=== PATIENT | female | born 1980 | race Caucasian/White ===

== ENCOUNTER 2017-02-14 04:00 | Emergency (ER) | payer SELFPAY ==
[~2017-02-14] VITALS: Ht 167.6 cm; Wt 66.2 kg
[2017-02-14 04:23] LABS: URINE BILIRUBIN - DIPSTICK NEGATIVE (NEG); URINE BLOOD TRACE-LYSED (NEG)
[2017-02-14 04:24] LABS: HEMOGLOBIN 13.4 g/dL (12.2-16.2); LYMPH % 38.7 % (10-50.0)
[2017-02-14 04:51] LABS: BUN 14 mg/dL (7-18)
[2017-02-14 04:55] LABS: GFR (ESTIMATED) 82 ML/MIN (59-)
--- NOTE | 2017-02-14 05:03 | Emergency Room Report ---
History of Present Illness Time Seen by [id number] Presenting Problem in Triage Pt arrived:Walked Presenting Problem:C/O CHEST PAIN AFTER HAVING ASTHMA ATTACK AT 299. 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 N Clinical Suspician of Infection? N Mental Status: 1 - Regular (Normal Baseline) Sepsis Risk:Low Sepsis Risk Have you (or family members/close friends) recently traveled outside the [place]? N If Yes, where/when: Have you had exposure to infectious disease within the past month? N TB? Other? Specify: Source patient, RN notes reviewed, old records Exam Limitations no limitations Comment after asthma attsack pt with acute chest pain tonight Cardiac Chest Pain Chest pain indicative of cardiac No Timing/Duration this evening Severity moderate ALLERGIES Coded Allergies: Penicillins (Mild, 12/26/16) nalbuphine (Mild, 12/26/16) tramadol (Mild, 12/26/16) Home Medications Reported Medications Albuterol (Albuterol-Hfa Inhaler) 1 PUFF IH PRN PRN SOB History Medical History General CAD? No Angina: Yes MD: No Hypertension? No Hyperlipidemia? No CHF? No DVT? Yes PE? No COPD? No Asthma? Yes Anemia? No GERD? No Gastric ulcers? No GI Bleed? No Hernia? No Thyroid Problems? No Hypothyroidism? No CVA? No Seizures? No Diabetes? No Renal Insuffiency? No End Stage Renal Disease? No UTI? No Stones? No BPH? No GB Disease: No Nephritic Syndrome? No Asplenia? No Hepatitis? No Sickle Cell Disease? No Arthritis? No Migraines? Yes Cataracts? No Glaucoma? No MRSA? No HIV? No TB? No Anxiety? Yes Depression? No Cancer? No More? 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 Respiratory cough, shortness of breath, wheezing Cardiovascular chest pain, denies palpitations, denies syncope Gastrointestinal denies abdominal pain, denies diarrhea, denies vomiting Genitourinary denies: dysuria, frequency, hesitancy, hematuria. Musculoskeletal denies back pain, denies joint swelling, denies neck pain Skin denies rash Psychiatric/Neurological denies headache, denies seizure Physical Exam Vital Signs Vital Signs Date Time Temp Pulse Resp B/P Pulse O2 O2 Flow FiO2 Ox Delivery Rate 02/14 402 97.5 83 24 146/92 100 - WBC >12,000 or <4,000 or 10% bands? 2 or more SIRS Criteria Met? B/P:146/92 MAP:110 Creatinine >2.0? UA output<0.5ml/kg/hr for 2 hrs? Platelet count >100,000? Lactate >2.0mmol/1? INR >1.2 or PTT > than 60 sec? Evidence of Organ Dysfunction? Provider documented clinical suspician of infection? N Sepsis Criteria Count: 1 Sepsis Risk: Low Sepsis Risk General Appearance no apparent distress Eye Exam - bilateral eye PERRL, bilateral eye EOMI Ear, Nose, Throat normal ENT inspection Neck supple Respiratory Status No: respiratory distress. Lung Sounds bilateral: rhonchi. 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 No Results/Orders Laboratory Tests 02/14/175: Urine Color YELLOW, Urine Appearance CLEAR, Urine pH 7.0, Ur Specific [place] <= 1.005, Urine Protein NEGATIVE, Urine Ketones NEGATIVE, Urine Blood TRACE-LYSED, Urine Nitrate NEGATIVE, Urine Bilirubin NEGATIVE, Urine Urobilinogen 0.2, Ur Leukocyte Esterase NEGATIVE, Urine RBC OCC, Ur Squamous Epith Cells 5-10, Urine Glucose NEGATIVE 02/14/175: Sodium 140, Potassium 3.7, Chloride 105, Carbon Dioxide 25, BUN 14, Creatinine 0.8, Estimated Creat Clear 104, Estimated GFR (MDRD) 82, Glucose 94, Calcium 9.3 , Total Bilirubin 0.5, AST 9 L, ALT 18, Alkaline Phosphatase 52, Creatine Kinase 58, CK-MB (CK-2) Rel Index 0.9, CK and CKMB Interp < 0.5, Troponin I < 0.02, Total Protein 7.3, Albumin 4.2, Globulin 3.1, Albumin/Globulin Ratio 1.4, WBC 7.7, RBC 4.62, Hgb 13.4, Hct 39.8, MCV 86.1, RDW 12.9, Plt Count 334, MPV 7.3 L, Gran % 52.2, Gran # 4.0, Lymphocytes % 38.7, Monocytes % 6.3, Eosinophils % 2.4, Basophils % 0.5, Lymphocytes # 3.0, Monocytes # 0.5, Eosinophils # 0.2, Basophils # 0.0, PUBS MCHC 33.7, MCH 29.0 Current Medication Orders Sig/Justa Start time Last Medication Dose Route Stop Time Status Admin Albuterol/Ipratropium 3 ML ONCE ONE 02/14 0430 DC 02/14 INH 02/14 043 0437 Albuterol/Ipratropium 0 .STK-MED ONE 02/14 0426 DC INH Orders Procedure Date/time Status RT REQUEST DUONEB 02/14 0418 Active URINALYSIS/COMPLETE 02/14 0407 Complete URINE 02/14 0407 Complete ELECTROCARDIOGRAM REQUEST 02/14 0405 Active CHEST(2 VIEWS-NOT PORTABLE) 02/14 0405 Active IV SALINE LOCK 02/14 0405 Active CBC WITH AUTO DIFF 02/14 0405 Complete CARDIAC ENZYMES 02/14 0405 Complete CHEM 12 PROFILE 02/14 0405 Complete [facility] 02/14 UNK Active 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 of ischemic chgs XRAY/CT/US XRAY/CT/US XRAY chest XR interpretation by reviewed by me Xray Results normal/NAD Departure Departure Time of Disposition 0503 Disposition DC Home or Self Care(routine) Clinical Impression Primary Impression: Chest pain Qualifiers: Chest pain type: unspecified Qualified Code: R07.9 - Chest pain, unspecified Secondary Impressions: Asthma Qualifiers: Asthma severity: unspecified severity Asthma complication type: with acute exacerbation Qualified Code: J45.901 - Unspecified asthma with (acute ) exacerbation Condition STABLE Referrals Josue JANE,A.C. (Family) Patient Instructions DI for Atypical Chest Pain Additional Instructions call pcp for follow up Discharge Counseling Counseled pt/family regarding diagnosis, test results, follow up needs ED Critical Care Critical Care No at [id number]
--- NOTE | 2017-02-14 05:03 | Emergency Room Report ---
History of Present Illness Time Seen by [id number] Presenting Problem in Triage Pt arrived:Walked Presenting Problem:C/O CHEST PAIN AFTER HAVING ASTHMA ATTACK AT 299. 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 N Clinical Suspician of Infection? N Mental Status: 1 - Regular (Normal Baseline) Sepsis Risk:Low Sepsis Risk Have you (or family members/close friends) recently traveled outside the [place]? N If Yes, where/when: Have you had exposure to infectious disease within the past month? N TB? Other? Specify: Source patient, RN notes reviewed, old records Exam Limitations no limitations Comment after asthma attsack pt with acute chest pain tonight Cardiac Chest Pain Chest pain indicative of cardiac No Timing/Duration this evening Severity moderate ALLERGIES Coded Allergies: Penicillins (Mild, 12/26/16) nalbuphine (Mild, 12/26/16) tramadol (Mild, 12/26/16) Home Medications Reported Medications Albuterol (Albuterol-Hfa Inhaler) 1 PUFF IH PRN PRN SOB History Medical History General CAD? No Angina: Yes SD: No Hypertension? No Hyperlipidemia? No CHF? No DVT? Yes PE? No COPD? No Asthma? Yes Anemia? No GERD? No Gastric ulcers? No GI Bleed? No Hernia? No Thyroid Problems? No Hypothyroidism? No CVA? No Seizures? No Diabetes? No Renal Insuffiency? No End Stage Renal Disease? No UTI? No Stones? No BPH? No GB Disease: No Nephritic Syndrome? No Asplenia? No Hepatitis? No Sickle Cell Disease? No Arthritis? No Migraines? Yes Cataracts? No Glaucoma? No MRSA? No HIV? No TB? No Anxiety? Yes Depression? No Cancer? No More? 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 Respiratory cough, shortness of breath, wheezing Cardiovascular chest pain, denies palpitations, denies syncope Gastrointestinal denies abdominal pain, denies diarrhea, denies vomiting Genitourinary denies: dysuria, frequency, hesitancy, hematuria. Musculoskeletal denies back pain, denies joint swelling, denies neck pain Skin denies rash Psychiatric/Neurological denies headache, denies seizure Physical Exam Vital Signs Vital Signs Date Time Temp Pulse Resp B/P Pulse O2 O2 Flow FiO2 Ox Delivery Rate 02/14 402 97.5 83 24 146/92 100 - WBC >12,000 or <4,000 or 10% bands? 2 or more SIRS Criteria Met? B/P:146/92 MAP:110 Creatinine >2.0? UA output<0.5ml/kg/hr for 2 hrs? Platelet count >100,000? Lactate >2.0mmol/1? INR >1.2 or PTT > than 60 sec? Evidence of Organ Dysfunction? Provider documented clinical suspician of infection? N Sepsis Criteria Count: 1 Sepsis Risk: Low Sepsis Risk General Appearance no apparent distress Eye Exam - bilateral eye PERRL, bilateral eye EOMI Ear, Nose, Throat normal ENT inspection Neck supple Respiratory Status No: respiratory distress. Lung Sounds bilateral: rhonchi. 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 No Results/Orders Laboratory Tests 02/14/175: Urine Color YELLOW, Urine Appearance CLEAR, Urine pH 7.0, Ur Specific [place] <= 1.005, Urine Protein NEGATIVE, Urine Ketones NEGATIVE, Urine Blood TRACE-LYSED, Urine Nitrate NEGATIVE, Urine Bilirubin NEGATIVE, Urine Urobilinogen 0.2, Ur Leukocyte Esterase NEGATIVE, Urine RBC OCC, Ur Squamous Epith Cells 5-10, Urine Glucose NEGATIVE 02/14/175: Sodium 140, Potassium 3.7, Chloride 105, Carbon Dioxide 25, BUN 14, Creatinine 0.8, Estimated Creat Clear 104, Estimated GFR (MDRD) 82, Glucose 94, Calcium 9.3 , Total Bilirubin 0.5, AST 9 L, ALT 18, Alkaline Phosphatase 52, Creatine Kinase 58, CK-MB (CK-2) Rel Index 0.9, CK and CKMB Interp < 0.5, Troponin I < 0.02, Total Protein 7.3, Albumin 4.2, Globulin 3.1, Albumin/Globulin Ratio 1.4, WBC 7.7, RBC 4.62, Hgb 13.4, Hct 39.8, MCV 86.1, RDW 12.9, Plt Count 334, MPV 7.3 L, Gran % 52.2, Gran # 4.0, Lymphocytes % 38.7, Monocytes % 6.3, Eosinophils % 2.4, Basophils % 0.5, Lymphocytes # 3.0, Monocytes # 0.5, Eosinophils # 0.2, Basophils # 0.0, PUBS MCHC 33.7, MCH 29.0 Current Medication Orders Sig/Justa Start time Last Medication Dose Route Stop Time Status Admin Albuterol/Ipratropium 3 ML ONCE ONE 02/14 0430 DC 02/14 INH 02/14 043 0437 Albuterol/Ipratropium 0 .STK-MED ONE 02/14 0426 DC INH Orders Procedure Date/time Status RT REQUEST DUONEB 02/14 0418 Active URINALYSIS/COMPLETE 02/14 0407 Complete URINE 02/14 0407 Complete ELECTROCARDIOGRAM REQUEST 02/14 0405 Active CHEST(2 VIEWS-NOT PORTABLE) 02/14 0405 Active IV SALINE LOCK 02/14 0405 Active CBC WITH AUTO DIFF 02/14 0405 Complete CARDIAC ENZYMES 02/14 0405 Complete CHEM 12 PROFILE 02/14 0405 Complete [facility] 02/14 UNK 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 of ischemic chgs XRAY/CT/US XRAY/CT/US XRAY chest XR interpretation by reviewed by me Xray Results normal/NAD Departure Departure Time of Disposition 0503 Disposition DC Home or Self Care(routine) Clinical Impression Primary Impression: Chest pain Qualifiers: Chest pain type: unspecified Qualified Code: R07.9 - Chest pain, unspecified Secondary Impressions: Asthma Qualifiers: Asthma severity: unspecified severity Asthma complication type: with acute exacerbation Qualified Code: J45.901 - Unspecified asthma with (acute ) exacerbation Condition STABLE Referrals Josue JANE,A.C. (Family) Patient Instructions DI for Atypical Chest Pain Additional Instructions call pcp for follow up Discharge Counseling Counseled pt/family regarding diagnosis, test results, follow up needs ED Critical Care Critical Care No at [phone]
[2017-02-14 05:18] VITALS: BP 145/63
--- NOTE | 2017-02-14 05:35 | RADIOLOGY REPORT PS360 ---
CHEST(2 VIEWS-NOT PORTABLE) HISTORY: CHEST PAIN SOB ORDERING PHYSICIAN: Landon Hernandez MD PATIENT AGE: 36 years COMPARISON: None available FINDINGS: The cardiomediastinal silhouette and pulmonary vascularity are within normal limits. The lungs are hyperexpanded with attenuation of the peripheral pulmonary vessels but are clear of infiltrates, suspicious nodules, or pleural effusions. No acute bony abnormalities. IMPRESSION: Hyperexpansion which may be seen with small airway disease such as asthma or bronchitis otherwise negative
== END 2017-02-14 05:18 | disposition home or self-care (01) ==
LOC: ER 04:00
PROVIDERS: Emergency Medicine
DX: R07.9 Chest pain, unspecified (principal); J45.901 Unspecified asthma with (acute) exacerbation; Z87.891 Personal history of nicotine dependence; Z79.899 Other long term (current) drug therapy

== ENCOUNTER → 2017-04-04 | Outpatient (CLI) | payer BC ==
[~2017-04-04] MED LIST: ALBUTEROL-200 PUFFS/ IH; ALLEGRA ALLERG180 MG PO; ALLEGRA60 M1 PO; COMPAZINE10 MG PO; FLEXERIL10 MG PO; FLOVENT DI100 MCG/Ac IH; IBU-200200 MG PO; INDERAL20 MG PO; MEDROL 4MG. DOSE4 MG PO; MOBIC7.5 MG PO; MOTRIN400 MG PO; PATANASE0.6% NS; PERCOCET 5/3251 EACH PO; PHENERGAN 25MG.25 M1 PO; POTASSIUM CHLO20 ME2 PO; PROAIR HFA0.09 MG/AC IH; REGLAN 10 MG TA10 MG PO; TALWIN NX 50MG50 MG PO; TYLENOL 325MG325 MG PO; VICODIN 5/500 T1 TAB PO; VISTARIL25 M1 PO; VOLTAREN75 MG PO; XANAX0.25 MG PO; ZITHROMAX 250M250 MG
--- NOTE | 2017-04-04 16:10 | RADIOLOGY REPORT PS360 ---
CTA-CHEST HISTORY: SHORTNESS OF BREATH,CHEST PAIN,H/O VENOUS THROMBOSIS ORDERING PHYSICIAN: Kalyan Ramos MD PATIENT AGE: 37 years TECHNIQUE: Helical acquisition obtained following the bolus administration of 60 mL of Isovue 370 followed by a saline bolus. Axial, sagittal, and coronal reformatted images are generated and reviewed. COMPARISON: None FINDINGS: PULMONARY ARTERIES:No pulmonary embolus evident. AORTA:No acute finding. No thoracic aortic aneurysm or dissection evident LUNGS:There are scattered calcified granulomas. A noncalcified nodule is present in the superior segment of the left lower lobe. The nodule has a bilobular appearance 7 mm along the superior aspect and 7 mm along the inferior aspect as well noncalcified. This is immediately lateral to a calcified granuloma. 4 mm noncalcified nodules present in the left upper lobe superior segment. An additional calcified granulomas present in the left lower lobe posteriorly PLEURAL SPACES:No significant effusion. No evidence of pneumothorax. HEART:Unremarkable. Normal heart size. No significant pericardial effusion. MEDIASTINAL AND HILAR STRUCTURES:No mediastinal or hilar mass evident. No dominant adenopathy. BONY STRUCTURES:No acute bony abnormalities apparent LYMPH NODES:No enlarged lymph nodes evident UPPER ABDOMEN:Unremarkable IMPRESSION: 1. No acute finding. No evidence of acute pulmonary embolus or aortic aneurysm or dissection. 2. Old granulomatous disease. 3. Noncalcified bilobular nodule in the superior segment left lower lobe immediately adjacent to a calcified granuloma. This may very well represent postinflammatory postinfectious change. Neoplasm not totally excluded therefore, follow-up recommended in 3 months to confirm short-term stability..
--- NOTE | 2017-04-04 17:35 | RADIOLOGY REPORT PS360 ---
US PELVIS-TRANSVAGINAL ONLY HISTORY: PELVIC PAIN ORDERING PHYSICIAN: Kalyan Ramos MD PATIENT AGE: 37 years COMPARISON: 09/02/2011 FINDINGS: The uterus is 7.5 x 3 x 4.2 cm with a combined endometrial thickness of 6 mm. The right ovary is 2.9 x 1.8 cm. Unremarkable appearance. The left ovary is 3.3 x 2.7 cm and contains a 1.6 cm cyst. There is a small amount fluid in the cul-de-sac. IMPRESSION: 1. 1.6 cm left ovarian cyst. 2. Right ovary has an unremarkable appearance. The previously noted 2.7 cm right ovarian cyst is no longer apparent 3. Small amount fluid in the cul-de-sac
== END ==
LOC: RAD 14:10
DX: R10.32 Left lower quadrant pain (principal)
CPT/HCPCS: Q9967

== ENCOUNTER → 2017-04-11 | Outpatient (CLI) | payer BC | LOC: RT 13:40 | DX: R06.02 Shortness of breath (principal) ==